=== PATIENT | female | born 1980 | race Caucasian/White ===

== ENCOUNTER 2016-11-12 16:08 | Emergency (ER) | payer OTHER ==
[2016-11-12 16:54] LABS: HEMOGLOBIN 12.2 gm/dl (12.3-15.3); RED BLOOD COUNT 3.77 M/UL (4.00-5.10); WHITE BLOOD COUNT 6.6 K/UL (4.5-11.0)
[2016-11-12 17:11] LABS: BUN/CREATININE RATIO 20 (0-10)
[2017-05-22] MEDS ORDERED: COLACE 100MG C100 MG PO (10:42)
== END 2016-11-12 19:41 | disposition home or self-care (01) ==
LOC: ER1 16:08
PROVIDERS: Emergency Medicine
DX: O99.89 Other specified diseases and conditions complicating pregnancy, childbirth and the puerperium (principal); R10.30 Lower abdominal pain, unspecified; Z3A.12 12 weeks gestation of pregnancy
CPT/HCPCS: 36415; 76815; 80053; 81001; 83690; 84702; 85025; 86900; 86901; 99284

== ENCOUNTER 2017-05-09 19:05 | Outpatient (CLI) | payer OTHER | END 2017-05-09 22:23 | disposition home or self-care (01) | LOC: GENOP 19:05 | DX: O99.89 Other specified diseases and conditions complicating pregnancy, childbirth and the puerperium (principal); R10.9 Unspecified abdominal pain; O36.8130 Decreased fetal movements, third trimester, not applicable or unspecified; Z3A.38 38 weeks gestation of pregnancy | CPT/HCPCS: 59025 ==